=== PATIENT | female | born 2000 | race Asian ===

== ENCOUNTER 2022-12-16 00:44 | Emergency (ER) | payer MEDICAID ==
[~2022-12-16] VITALS: Ht 167.6 cm; Wt 86.0 kg
[2022-12-16 00:57] VITALS: BP 117/86
[2022-12-16] MEDS ORDERED: ACETAMINOPHEN 325MG TABLET PO STA (02:58)
[2022-12-16 03:24] LABS: BASOPHILS % 0.4 % (0.0-2.0); EOSINOPHILS % 0.4 % (0.0-5.0); HEMATOCRIT. 43.4 % (36.0-48.0); HEMOGLOBIN. 14.5 g/dL (12.0-16.0); LYMPHOCYTES % 29.6 % (20.0-50.0); MEAN CORPUSCULAR HEMOGLOBIN 29.5 pg (28.0-32.0); MEAN CORPUSCULAR VOLUME 87.9 fL (81.0-99.0); MONOCYTES % 4.1 % (2.0-8.0); NEUTROPHILS % 65.5 % (40.0-76.0); PLATELET 230 x1000/uL (130-400); RED BLOOD CELL COUNT 4.94 mill/uL (4.2-5.4); RED CELL DISTRIBUTION WIDTH 13.7 % (11.6-14.6)
[2022-12-16] MEDS ORDERED: ACETAMINOPHEN 325MG TABLET PO NR (04:30)
[2022-12-16] MEDS ORDERED: OXYM30SP26 BOTHNSTRLS (05:20)
[2022-12-16] MEDS ORDERED: ACET-2708 PO (05:20)
== END 2022-12-16 05:50 | disposition home or self-care (01) ==
LOC: ER 00:44
DX: S00.33XA Contusion of nose, initial encounter (principal); R04.0 Epistaxis; X99.0XXA Assault by sharp glass, initial encounter; Y93.89 Activity, other specified; Y92.252 Music hall as the place of occurrence of the external cause
CPT/HCPCS: 36415; 70160; 81025; 85025; 99284

== ENCOUNTER 2023-07-31 14:20 | Emergency (ER) | payer MEDICAID ==
[~2023-07-31] VITALS: Ht 167.6 cm; Wt 68.0 kg
[~2023-07-31 14:20] MED LIST: ACET-2708 PO; OXYM30SP26 BOTHNSTRLS
[2023-07-31 14:29] VITALS: O2SAT 97
[2023-07-31] MEDS ORDERED: NAPR500T7 MT (16:27)
[2023-07-31 16:36] VITALS: BP 129/81; PULSE 74; RESP 16; TEMP 98.2
== END 2023-07-31 16:37 | disposition home or self-care (01) ==
LOC: ER 14:50
DX: M54.42 Lumbago with sciatica, left side (principal); M41.9 Scoliosis, unspecified
CPT/HCPCS: 72100; 81025; 99283